=== PATIENT | female | born 1980 | race Caucasian/White ===

== ENCOUNTER 2023-09-04 14:04 | Outpatient (AMB) | payer OTHER, SELFPAY ==
--- NOTE | 2023-09-04 14:24 | MHC.OFFVIS ---
Intake Intake Visit Reasons: low back pain Alternative Education Teacher Required: No Assessment & Plan Assessment & Plan (1) Lumbar radiculopathy: Code(s): M54.16 - Radiculopathy, lumbar region Plan Dear colleague, Thank you for referring Mckinley to our office today. She is a pleasant 42-year-old female comes in today with a chief complaint of 3 years of low back pain with radiation down her left lower extremity. She states this radiation of pain is associated with numbness/burning/tingling. She reports that posterior to her knee down to her foot she feels diffuse numbness. She is concerned because she has also been experiencing weakness in her left foot. She describes her radiation of symptoms as a pain that starts in her low back travels down her posterior thigh wrapping around under the anterior knee down the anterior tibialis terminating at the bottom of her foot near the great toe. She states that this pain is some persistent for the last 3 years since she slipped on some black ice and landed on her buttocks. It has waxed and waned over the years but over the course of the last few months it has become progressively worse to the point where she is seeking interventions for now. She has tried utilizing prednisone, cortisone injections, ibuprofen, Tylenol, ice, heat, and over the counter pain patches without significant relief. She reports that sitting down aggravates her symptoms, and that laying down alleviates her symptoms. PMH: Cholecystectomy 1 month ago. Social hx: Patient does not smoke, reports no substance use. Medications: Ibuprofen, Tylenol. Allergies: NKDA. Physical exam: LLE: 3/5 strength in her EHL, 4/5 strength with dorsiflexion, and 4/5 strength with knee extension. Knee flexion and Hip flexion remain 5/5 but she reports she has to push through pain to get to 5/5. RLE: 5/5, Bilateral upper extremities 5/5. Sensation diminished below the knee on left lower extremity, grossly intact everywhere else. Patient is able to ambulate without assistance, but has an antalgic gait. (+) left-sided straight leg raise, (-) right-sided straight leg raise, (-) clonus, (-) Babinski's, (-) Lemus's. Imaging review: MRI of the lumbar spine completed on 07/23/23 at [facility] shows significant disc herniation at L4-5 protruding into the left lateral recess impinging the left-sided exiting nerve root. Impression: The patient is a 42-year-old female comes in with 3 years of longstanding low back pain with radiation of symptoms down her left lower extremity in a classic L5 distribution. Her symptoms are worsened over the course of the last year to the point where she feels like she needs an intervention at this time to help relieve her symptoms. We extensively discussed that she is likely to have resolution of her left lower extremity shooting pain, but it is generally unknown if she will recover sensation or strength in her left lower extremity as she has had 3 years of nerve impingement / damage. She would likely most benefit from a left-sided L4-5 microdiskectomy, but will need to meet with Dr. Mckeon who will make the final decision. Her imaging and symptoms were reviewed with NEVAEH Madison, and she was put on the schedule tentatively for 11/05/2023, pending a clinic visit with Dr. Mckeon. Mckinley was given risk and benefits of surgery including but not limited to infection, hematoma, nerve injury, durotomy, weakness, bowel/bladder injury, persistent pain, as well as the option to continue with conservative treatment and patient wishes to proceed with surgery. She is aware they should stop Ibuprofen 7 days before surgery. All questions were answered to the best of our ability. If there is anything about this patients medical history that we have overlooked or concerns you have about us proceeding with surgery we would appreciate any input you can offer. Thank you for allowing us to care for your patient. The total time spent with this visit with this patient was 45 minutes reviewing history, physical exam, MRI imaging review, and implementation of treatment plan or further diagnostic testing Ramon Mckeon MD,PhD [facility] Coding Level of Care Code New Pt Level 5 (09317) Diagnoses Lumbar radiculopathy M54.16
== END 2023-09-04 15:19 | disposition home or self-care (01) ==
PROVIDERS: Referring Provider Physician Assistant Medical; Visit Provider Physician Assistant
DX: M54.16 Radiculopathy, lumbar region (principal)
CPT/HCPCS: 99205

== ENCOUNTER → 2023-09-04 14:04 | Outpatient (BNVA) | payer OTHER, SELFPAY | PROVIDERS: Visit Provider Physician Assistant ==

== ENCOUNTER 2023-10-27 15:03 | Outpatient (AMB) | payer OTHER, SELFPAY ==
--- NOTE | 2023-10-27 16:05 | HO.SPINEOV ---
Intake Intake Visit Reasons: meet / Glenn 11/05/23 Allergies No Known Allergies Allergy (Verified 10/22/23 15:04) Assessment & Plan Assessment & Plan (1) Lumbar radiculopathy: Code(s): M54.16 - Radiculopathy, lumbar region Plan Dear colleague, On October 27, 2023, I saw for preoperative visit Mckinley Carblalo. 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 The patient is experiencing symptoms for the last 3 years with intermittent episodes of severe radiating pain down her leg. The episodes can last for several months. Currently, the majority of the radiating pain down her leg has disappeared. She does state that she can not walk or stand for long periods of times as this causes back pain radiating down her left leg. The MRI shows severe spinal canal stenosis due to herniated disc with compression of the left L5 nerve root. We had an extensive discussion about the surgical indication. There is clearly nerve damage going on with numbness and weakness and relieving the pressure of the nerve may and hands recovery. There still component of radicular pain with walking and standing and overall her life has changed. Therefore I am leaning more towards surgery then continuing conservative care. She is scheduled for November 05 and she will let my office know if she wants to proceed. I spent 40 minutes in his consult to discuss the indication and answering questions. Eliseo Mckeon MD, PhD Spine Fellowship Trained Neurosurgeon Director, [facility] Coding Level of Care Code Est Pt Level 5 (20920) Diagnoses Lumbar radiculopathy M54.16
== END 2023-10-27 16:13 | disposition home or self-care (01) ==
PROVIDERS: PCP Internal Medicine; Visit Provider Neurological Surgery
DX: M54.16 Radiculopathy, lumbar region (principal)
CPT/HCPCS: 99215

== ENCOUNTER → 2023-10-27 15:03 | Outpatient (BNVA) | payer OTHER, SELFPAY | PROVIDERS: PCP Internal Medicine; Visit Provider Neurological Surgery | DX: M54.16 Radiculopathy, lumbar region (principal) | CPT/HCPCS: 99212 ==

== ENCOUNTER 2023-11-05 11:09 | Day surgery (SDC) | payer OTHER, SELFPAY ==
[2023-10-22 15:07] VITALS: BMI 34.7
--- NOTE | 2023-10-23 13:15 | HO.ANESPROP2 ---
Documented by User: Toshia Beverly NP 10/30/23 11:51 HPI - Anesthesia Eval Consult details Narrative: 42yo F for L4-5 MicroLumbar discectomy, 11/05/23 Phone PAT assessment. Pt with tachy at PCP. Sent for cardiac optimization prior to 08/2023 lap rogelio. Had echo, OK. No issues with anesthesia for lap rogelio. PMFSH Active Problems Active Problems: All Active Problems (Updated 10/21/23 @ 16:55 by Ritu Cross RN) Lumbar radiculopathy (Acute) Past Medical History Medical History (Updated 10/21/23 @ 16:55 by Ritu Cross RN) Eczema Migraines Thyroid nodule Atypical chest pain Tachycardia Surgical History Surgical History (Updated 10/22/23 @ 15:07 by Ritu Cross RN) Hx of colonoscopy Hx laparoscopic cholecystectomy Social History Social History (Updated 10/22/23 @ 15:10 by Ritu Cross RN) Household Members: Family Housing: House Are you a primary transitional care manager to a significant other at home: Yes (children) Do you presently have visiting nurse or other home services: No Patient Tobacco Use Status: Never used Tobacco Use of substances other than those prescribed or required for medical reasons: No Have you been hit, kicked, punched, or otherwise hurt by someone within the past year? If so, by whom?: No Are you DNR?: No Advance Directives: No Advance Directives Information Provided: Yes Advance Directives on File: No Recently lost weight without trying: No Nutrition Risks: No Nutritional Risk Patient : No FDLMP: 10/19/2023 : No Poor oral hygiene: No Meds Allergies Allergy/AdvReac Type Severity Reaction Status Date / Time No Known Allergies Allergy Verified 10/22/23 15:04 Home Medications Medication Instructions Recorded Confirmed Last Taken Type acetaminophen 500 mg tablet 1,000 mg PO TID 10/21/23 10/21/23 Unknown History ibuprofen 400 mg tablet 400 mg PO Q6H PRN Pain 10/22/23 10/22/23 Unknown History sumatriptan succinate 50 mg tablet 50 mg PO Q2-4H PRN Migraine 10/22/23 10/22/23 Unknown History (Imitrex) Headache Exam Height,Weight and Vital Signs: Height 5 ft 2 in Weight 86.183 kg Pertinent Lab Results Pertinent Lab Results: CBC and CMP 05/2023 and 06/2023 from outside facility WNL Narrative Narrative: EKG 04/2023 ST @ 102 ECHO 08/2023 Nml LV chamber size. Nml RWM. EF 60% Trace AI. Trace MN. Assessment and Plan Assessment Anesthesia Assessment: Chart Reviewed Documented by User: Иван Hollis MD 11/05/23 08:42 PMFSH Past Medical History Medical History (Updated 10/21/23 @ 16:55 by Ritu Cross RN) Eczema Migraines Thyroid nodule Atypical chest pain Tachycardia Family History Family history of problems with anesthesia: No Surgical History Surgical History (Updated 10/22/23 @ 15:07 by Ritu Cross RN) Hx of colonoscopy Hx laparoscopic cholecystectomy History of Problems with Anesthesia: No Social History Social History (Updated 10/22/23 @ 15:10 by Ritu Cross RN) Household Members: Family Housing: House Are you a primary transitional care manager to a significant other at home: Yes (children) Do you presently have visiting nurse or other home services: No Patient Tobacco Use Status: Never used Tobacco Use of substances other than those prescribed or required for medical reasons: No Have you been hit, kicked, punched, or otherwise hurt by someone within the past year? If so, by whom?: No Are you DNR?: No Advance Directives: No Advance Directives Information Provided: Yes Advance Directives on File: No Recently lost weight without trying: No Nutrition Risks: No Nutritional Risk Patient : No FDLMP: 10/19/2023 : No Poor oral hygiene: No Meds Allergies Allergy/AdvReac Type Severity Reaction Status Date / Time No Known Allergies Allergy Verified 10/22/23 15:04 Home Medications Medication Instructions Recorded Confirmed Last Taken Type acetaminophen 500 mg tablet 1,000 mg PO TID 10/21/23 10/21/23 Unknown History ibuprofen 400 mg tablet 400 mg PO Q6H PRN Pain 10/22/23 10/22/23 Unknown History sumatriptan succinate 50 mg tablet 50 mg PO Q2-4H PRN Migraine 10/22/23 10/22/23 Unknown History (Imitrex) Headache Exam Airway Mallampati Class: III TM Dist: >3cm Neck ROM: Limited Heart: rrrr Lungs: cts Assessment and Plan Assessment Anesthesia Assessment: Anesthesia Plan Discussed Final Anesthetic Review Family History of Problems with Anesthesia: No History of Problems with Anesthesia: No NPO: Yes ASA Class: II Final Preanesthetic Review: No Changes in Pt Med Stat, Meds/Allgs Chart Reviewed, Consent Obtained/Reviewed and Anes Risks/Benef Reviewed Patient Risk: Intermediate Procedure Risk: Intermediate Anesthetic Plan Anesthetic Plan: GA and Agree w/ Assess. and Plan Disposition: Standard PACU
[2023-11-05] VITALS (14 sets, daily range): BP systolic 111–136; BP diastolic 67–91; PULSE 77–107; RESP 14–18; TEMP 36.1–36.8; O2SAT 96–100
--- NOTE | ~2023-11-05 | FL_ITS ---
EXAMINATION: XR FLUOROSCOPY WITH IMAGES CLINICAL INFORMATION: L4-L5 discectomy, left. COMPARISON: None available. TECHNIQUE: Fluoroscopy Supervised By: Dr. Eliseo Mckeon. Fluoroscopy Time: 0.0 minutes. Cumulative Dose: 3.04 mGy. DAP: 0.411 Gycm2. Images: 1. FINDINGS: Single lateral image demonstrates surgical instruments and probe posterior to the L4-L5 disc space FL/FL guidance in OR IMPRESSION: Fluoroscopy guidance for lumbar spine surgery
--- NOTE | 2023-11-05 07:19 | MHC.SHP ---
Pre-Procedural Eval Section A Date of Service: 11/05/23 The patient is an INPATIENT: No Changes since office visit: No Cold of Flu in the past 2 weeks, No New Medical Problems, No Changes in Medication and No Patient answered all questions The History & Physical has been completed within 30 days and I have reviewed it.: No Section B Chief Complaint: Radiculopathy, lumbar region Allergies: Allergies Allergy/AdvReac Type Severity Reaction Status Date / Time No Known Allergies Allergy Verified 10/22/23 15:04 Review of Systems Sugical H&P ROS: Negative: Constitution, Cardiovascular, Respiratory, Neurological, Psychiatric, Hem-Onc, Allergic/Immunologic, Gastrointestinal, Genitourinary, Musculoskeletal, Integumentary, Endocrine and Eyes/Ears/Nose/Throat Exam Surgical H&P Exam: Not Evaluated: HEENT, Not Evaluated: Heart, Not Evaluated: Lungs, Not Evaluated: Extremities, Not Evaluated: Abdomen, Not Evaluated: Skin and Not Evaluated: Neurological Plan Diagnosis/Plan: Unchanged I have reviewed the history and physical and performed a pertinent physical examination on my patient. No changes have occurred unless specified. left L4-5 microdiskectomy Time Spent With Patient Time: Total time managing care of this patient today _6___ minutes.
[2023-11-05] MEDS: Gabapentin 300 MG CAPSULE PO (11:23)
[2023-11-05] MEDS: Lactated Ringers 1,000 ML 100 ML IVCONT (11:23)
[2023-11-05] MEDS: methocarbamoL 750 MG TABLET PO (11:23)
[2023-11-05 11:26] LABS: UPreg QC Valid YES; Urine Pregnancy NEGATIVE (NEGATIVE)
--- NOTE | 2023-11-05 13:21 | P.DS_ITS ---
DS: Providers Provider Date of Service: 11/05/23 Primary care physician: Donna Frias MD DS: Summary Time Attestation Discharge coordination time: Less than 30 minutes Quality: Safe Use of Opioids Does Pt have an Active Cancer Diagnosis on the Problem List?: No Quality: Stroke Does the patient have a stroke diagnosis?: No Physical Exam Vital Signs: Vital Signs: Last Vital Signs Temp 98.2 F 11/05/23 11:32 Pulse 107 H 11/05/23 11:32 Resp 16 11/05/23 11:32 BP 127/91 H 11/05/23 11:32 Pulse Ox 98 11/05/23 11:32 O2 Del Method Room Air 11/05/23 11:32 BMI result Body Mass Index 34.7 DS: Data Data Completed and Pending Labs on day of discharge: Laboratory Results - last 24 hr 11/05/23 11:15 Urine Test NEGATIVE Discharge Plan Discharge Patient Disposition: Home, Self-Care Referrals: Donna Frias MD [Primary Care Provider] - 1 Week Discharge Medications: New oxycodone 5 mg tablet 5 mg PO Q6H PRN (Reason: severe pain (scale score 7-10)) Qty: 30 0RF Rx Instructions: Partial Fill upon patient request. No Action acetaminophen 500 mg tablet 1,000 mg PO TID ibuprofen 400 mg Tablet 400 mg PO Q6H PRN (Reason: Pain) sumatriptan succinate [Imitrex] 50 mg Tablet 50 mg PO Q2-4H PRN (Reason: Migraine Headache) Rx Instructions: do not exceed 4 doses per 24 hrs Discharge Orders: Discharge Order (Routine); Ordered 11/05/23 Ordered By: Ramon Schroeder Diet: Advance to usual diet Activity on Discharge: As tolerated Activity Restrictions/Additional Instructions: AFTER YOUR SPINAL SURGERY WE ASK YOU TO OBSERVE THE FOLLOWING RESTRICTIONS/GUIDELINES: ACTIVITY: IT IS NORMAL TO FEEL SOME DISCOMFORT YOU INCREASE YOUR ACTIVITY, BUT THAT WILL IMPROVE WITH TIME. WE ASK YOU AVOID HEAVY LIFTING OR ACITIVITIES THAT CAUSE PAIN. A GENERAL RULE, 8LBS IS A SAFE LIMIT FOR LIFTING RIGHT AFTER SURGERY. WALK MUCH YOU FEEL COMFORTABLE BUT NOT TO EXHAUSTION. YOU WILL FEEL EXTRA TIRED THE FIRST FEW DAYS AFTER SURGERY. STAY WELL HYDRATED. IT IS OK TO WALK UP AND DOWN STAIRS YOU MAY RETURN TO DRIVING WHEN YOU ARE OFF NARCOTICS (SUCH VICODIN, OXYCODONE, DILAUDID, ETC), AND YOU ARE BACK TO NORMAL FUNCTIONAL CAPACITY. IF YOU HAVE ANY CONCERNS PLEASE CHECK WITH OFFICE BEFORE DRIVING. RETURN TO WORK IS SPECIFIC TO EACH PATIENT AND EACH SURGERY, SO PLEASE SPEAK WITH YOUR DOCTOR/PA AT FIRST FOLLOW UP. PLEASE BRING PAPERWORK SUCH FMLA AT THAT TIME IF YOU NEED IT FILLED OUT. MEDICATIONS: WE WILL GIVE YOU A SHORT SUPPLY OF NARCOTICS AFTER SURGERY (USUALLY ONE WEEKS WORTH). IF YOU NEED MORE PLEASE CALL THE OFFICE BUT DO NOT USE MORE THAN PRESCRIBED. YOU WILL NEED TO GIVE OUR OFFICE 48 HOURS NOTICE IF YOU NEED NARCOTICS REFILLED AND WE DO NOT FILL NARCOTICS ON WEEKENDS OR EVENINGS. IF YOU ARE ON A NARCOTIC, IT IS A GOOD IDEA TO TAKE A STOOL SOFTENER SUCH CO LACE OR SENNA TO AVOID CONSTIPATION IF YOU TAKE BLOOD THINNER SUCH ASPIRIN, PLAVIX, COUMADIN, EFFIENT, ELIQUIS ETC FOR CONDITIONS SUCH AFIB, DVT, PULMONARY EMBOLUS, CORONARY DISEASE, STENTS ETC PLEASE SPEAK WITH YOUR SURGEON ABOUT SPECIFIC DETAILS TO WHEN YOU CAN RESUME THESE MEDICATIONS. YOU CAN RESUME NSAIDS ON POST OP DAY 1 (EG: MOTRIN, NAPROXEN, ETC). FOLLOW UP: PLEASE CALL THE OFFICE, , AFTER SURGERY TO ARRANGE A 3 WEEK FOLLOW UP FOR WOUND CHECK. WOUND CARE: YOU MAY REMOVE YOUR DRESSING ON THE FIRST DAY AFTER SURGERY. YOU MAY LEAVE OPEN TO AIR. PLEASE DO NOT REMOVE THE STERI STRIPS UNDERNEATH. THEY WILL FALL OFF ON THEIR OWN IN ONE WEEK. IT IS NORMAL FOR THE WOUND TO OOZE OR BE BLOODY FOR A FEW DAYS AFTER SURGERY. IF THIS HAPPENS JUST PLACE NEW DRESSING OVER IT TO AVOID STAINING CLOTHES. YOU MAY SHOWER ON POST OP DAY # 1 WE ASK THAT YOU DO NOT LET THE WATER SOAK THE WOUND. IF IT DOES GET WET, JUST TOWEL DRY LIGHTLY. PLEASE DO NOT SCRUB YOUR INCISION OR PLACE ANY TYPE OF CHEMICAL/OINTMENT ON THE WOUND. NO TUB BATHS, POOLS OR JACUZZIS FOR ONE MONTH. IF YOU HAVE ANY LEAKING OR REDNESS FROM YOUR WOUND, OR FEVERS, PLEASE CALL THE OFFICE.
--- NOTE | 2023-11-05 13:25 | W.PM.OPN ---
Operative Note Operative Note Date of Service: 11/05/23 Narrative: Preoperative diagnosis: Left L5 lumbar radiculopathy due to disc herniation Postoperative diagnosis: Same Procedure: Left L4-5 lumbar microdiskectomy with microscope Surgeon: Eliseo Mckeon MD, PhD Sweeping Compound Blender: NEVAEH Peterson This 42-year-old female suffering from left lumbar radiculopathy/neurogenic claudication due to an L4-5 disc herniation causing spinal stenosis. The patient was offered a lumbar microdiskectomy to decompress the nerve root. The procedure complications were explained. The patient was consented. The patient was brought to the operating room and endotracheally intubated. The patient was turned in a prone position on the Bowen frame. Prepping and draping was done followed by time-out. A mid lumbar incision was made followed by release of the paravertebral muscles on the left side to expose the L4-5 interspace. An intraoperative x-rays obtained to confirm the correct level. The microscope was brought in. A L4 laminotomy was done followed by opening of the flavum ligament. The L5 nerve root was identified and retracted medially to expose the L4-5 disc space. I could palpate a disc herniation medial from the L5 nerve root, which I carefully removed with a pituitary. The disc space was inspected and no residual disc fragments were removed. This resulted in an excellent decompression of the L5 nerve root. Hemostasis was done. The microscope was removed. Marcaine was injected intramuscularly.The incision was closed in two layers. Steri-Strips used to approximate seizure. An op-site were taken there was used to cover the incision. All sponge and needle counts were correct. Patient was extubated and transported in stable condition to recovery room. this procedure was done with the aid of a physician assistant operator who performed the initial exposure until the microscope was brought in and performed the closure of the incision. Anesthesia: General Blood loss: 10 mL Complications: None Specimen: None Surgical time: 45 minute Disposition: Discharge home
[2023-11-05] MEDS: fentaNYL citrate/PF 100 MCG/2 ML VIAL 25 MCG IVPUSH ×2 (14:18→14:26)
[2023-11-05] MEDS: Ondansetron ODT 4 MG TAB.RAPDIS TRANSLINGU (15:23)
== END 2023-11-05 15:49 | disposition home or self-care (01) ==
PROVIDERS: Nurse Practitioner; PCP Internal Medicine; Visit Provider Neurological Surgery
PROC: (CPT 63030; principal; 2023-11-05 14:40)
DX: M54.16 Radiculopathy, lumbar region (principal); M54.50 Low back pain, unspecified; R26.89 Other abnormalities of gait and mobility; Z91.81 History of falling; R20.0 Anesthesia of skin; R20.2 Paresthesia of skin; Z79.1 Long term (current) use of non-steroidal anti-inflammatories (NSAID); Z79.899 Other long term (current) drug therapy; Z90.49 Acquired absence of other specified parts of digestive tract
CPT/HCPCS: 63030; 81025; J0131; J0690; J1100; J1885; J2405; J2704; J3010

== ENCOUNTER → 2023-11-05 11:09 | Outpatient (BNV) | payer OTHER, SELFPAY | PROVIDERS: PCP Internal Medicine; Visit Provider Physician Assistant | DX: M54.16 Radiculopathy, lumbar region (principal) | CPT/HCPCS: 63030; 99499 ==

== ENCOUNTER 2023-11-27 13:24 | Outpatient (AMB) | payer OTHER, SELFPAY ==
--- NOTE | 2023-11-27 13:32 | HO.SPINEOV ---
Intake Intake Visit Reasons: 1st post op Intake Note: Mrs. Carballo is here today for her 1st post-op visit. Sales Effectiveness Manager Required: Yes Allergies No Known Allergies Allergy (Verified 11/05/23 11:16) Assessment & Plan Assessment & Plan (1) Lumbar radiculopathy: Code(s): M54.16 - Radiculopathy, lumbar region Plan Procedure: L4-5 Left side microdiskectomy Mckinley comes in today for her 1st postoperative visit. She reports some reduced pain on her left side, but states she still has aching on that side with ambulation. She reports she is up walking around and completing the majority of her ADLs. She thankfully no longer suffers from the intense shooting radiculopathy. She has been attempting to remain active and walk throughout the day. We discussed continuing to complete ADLs, including daily walking, and reviewed lifting/bending restrictions and limitations. No significant neurological deficits. Patient is able to ambulate well, rises from a seated position without difficulty. Incision sites are closed, well healing, with no signs of drainage. We will follow-up with the patient in 6 weeks for her 2nd postoperative visit to monitor her recovery progress. Ramon Mckeon MD,PhD [facility] Coding Level of Care Code Global (24540) Diagnoses Lumbar radiculopathy M54.16
== END 2023-11-27 13:44 | disposition home or self-care (01) ==
PROVIDERS: PCP Internal Medicine; Visit Provider Physician Assistant
DX: M54.16 Radiculopathy, lumbar region (principal)
CPT/HCPCS: 99024

== ENCOUNTER → 2023-11-27 13:24 | Outpatient (BNVA) | payer OTHER, SELFPAY | PROVIDERS: PCP Internal Medicine; Visit Provider Physician Assistant | DX: Z48.89 Encounter for other specified surgical aftercare (principal); M54.16 Radiculopathy, lumbar region | CPT/HCPCS: 99212 ==

== ENCOUNTER 2024-01-08 14:53 | Outpatient (AMB) | payer OTHER, SELFPAY ==
--- NOTE | 2024-01-08 15:04 | A.SPINEOV_ITS ---
Intake Intake Visit Reasons: 2nd post op Intake Note: Ms. Carballo is here today for 2nd post op. appointment. Parking Lot Chauffeur Required: No Allergies No Known Allergies Allergy (Verified 11/05/23 11:16) Assessment & Plan Assessment & Plan (1) Lumbar radiculopathy: Code(s): M54.16 - Radiculopathy, lumbar region Plan Mrs Carballo is back to see us. She is about 7 or 8 weeks out from her left L4-5 microdiskectomy. She has had complete relief of the left leg pain but still remains with numbness in her foot as well as partial footdrop. She is a little frustrated at the lack of progress with the strength and numbness. I reinforced the fact that there could have been nerve damage at the time of the original disc herniation and that even with the pressure taken off the nerve it is really up to time whether this will get better or not. She was asking about using an AFO and I told her only she thought that it was helpful but I encouraged her to try to walk without it to restrengthen in the muscle. At this point, we can see her back on an as-needed basis. She understands that the strength in the foot may be a permanent situation. Deion Mckeon MD, PhD [facility] Coding Level of Care Code Global (42009) Diagnoses Lumbar radiculopathy M54.16
== END 2024-01-08 15:27 | disposition home or self-care (01) ==
PROVIDERS: PCP Internal Medicine; Visit Provider Physician Assistant
DX: M54.16 Radiculopathy, lumbar region (principal)
CPT/HCPCS: 99024

== ENCOUNTER → 2024-01-08 14:53 | Outpatient (BNVA) | payer OTHER, SELFPAY | PROVIDERS: PCP Internal Medicine; Visit Provider Physician Assistant | DX: M54.16 Radiculopathy, lumbar region (principal) | CPT/HCPCS: 99212 ==